=== PATIENT | female | born 1990 | race Caucasian/White ===

== ENCOUNTER → 2016-08-10 | Outpatient (CLI) | payer OTHER ==
[2016-08-10 12:17] LABS: CHOLESTEROL/HDL RATIO 2.5; THYROID STIMULATING HORMONE 3.2 uIu/ml (0.300-4.500)
== END | disposition home or self-care (01) ==
LOC: C.LABPBG 09:39
PROVIDERS: ATTEND Physician Assistant
DX: Z00.00 Encounter for general adult medical examination without abnormal findings (principal); E03.8 Other specified hypothyroidism

== ENCOUNTER → 2016-08-16 | Outpatient (CLI) | payer OTHER ==
[2016-08-16 11:45] LABS: CALCIUM 9.3 mg/dl (8.5-10.1)
[2016-08-16 11:46] LABS: BLOOD UREA NITROGEN 11 mg/dl (7-18); CARBON DIOXIDE 26 mmol/L (21-32); CHLORIDE 108 mmol/L (98-107); CREATININE 0.76 mg/dl (0.60-1.20); GLUCOSE 80 mg/dl (70-99); POTASSIUM 4.1 mmol/L (3.5-5.1); SODIUM 140 mmol/L (136-145)
== END | disposition home or self-care (01) ==
LOC: C.LABPBG 07:45
PROVIDERS: ATTEND Physician Assistant
DX: Z00.00 Encounter for general adult medical examination without abnormal findings (principal)

== ENCOUNTER 2021-03-27 14:11 | Inpatient (IN) ==
[2021-03-27] MEDS ORDERED: OXYTOCIN 30 UNITS/500 ML BAG IV PRN (15:28)
--- NOTE | 2021-03-27 15:30 | History & Physical Report ---
Date of Service March 27, 2021 Assessment & Plan (1) SROM (spontaneous rupture of membranes): Plan: 30yo at 39 weeks GA presents for SROM. - SROM a few hours ago - Epidural pending - Labor: pit - Vitals: elevated BP, mildly tachycardic on arrival; otherwise WNL History of Present Illness Chief Complaint: SROM Primary Care Provider: Regulo Shaw MD 30yo at 39 weeks GA presents for SROM. Leakage of fluid: water broke a few hours ago Contractions: regular for the past few hours Vaginal Bleeding: mild since spontaneous rupture of membranes Movement: good Uncomplicated course thus far. GBS negative. Allergies Allergy/AdvReac Type Severity Reaction Status Date / Time No Known Allergies Allergy Verified 03/27/21 15:05 Home Medications Medication Instructions Recorded Confirmed Type biotin 10 mg tablet 10 mg PO DAILY tab 01/26/19 03/27/21 History cholecalciferol (vitamin D3) 25 1,000 units PO DAILY cap 01/26/19 03/27/21 History mcg (1,000 unit) capsule levothyroxine 50 mcg tablet 50 mcg PO Q OTHER DAY #90 tab 06/22/20 03/27/21 Rx levothyroxine 75 mcg tablet 75 mcg PO Q OTHER DAY #45 tab 08/22/20 03/27/21 Rx breast pump #1 ea 12/13/20 03/21/21 Rx prenat.vits,lois,ggo-ksro-overk 1 tab PO DAILY 03/27/21 03/27/21 History Patient History Medical History Bicuspid aortic valve Secondary hypothyroidism Surgical History H/O wisdom tooth extraction Hx of tonsillectomy Family History Mother Multiple sclerosis Brother Bicuspid aortic valve Sister Bicuspid aortic valve Denies family history of Ovarian cancer Prostate cancer Breast cancer Lung cancer Colorectal cancer Uterine cancer Social History (Updated 08/11/20 @ 13:47 by Vicki Bautista RN) Smoking Status: Never smoker Second Hand Exposure: No; Hx Alcohol Use: No Hx Substance Use: No Preferred Language: Vietnamese Communication Ability: Effective Visual Impairment: Limited Hearing Ability: Normal Forest Officer Required: No Beliefs That Will Affect Care: None marital status: marital status details: Vinayak Taveras (30) [phone] Current Living Situation: Spouse Current Living Situation Comment: Vinayak current occupational status: employed 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 Denies dyspnea, cough. Denies chest pain. Denies breast pain or discharge. Denies dysuria. Denies headache. Denies back pain. Physical Exam Physical Exam: General: Alert, oriented, no acute distress Cardiac: Regular rhythm, mildly tachycardic, normal S1, S2. No murmurs appreciated. Respiratory: Clear to auscultation b/l with good air flow entry, symmetric chest rise and fall. No wheezes or crackles. No increased work of breathing or accessory muscle use Abdomen: Gravid, soft, nontender. No guarding or CVA tenderness Spontaneous rupture of membranes. Results & Data ([facility]) Vital Signs (Past 12 Hours) Vital Signs Temp Pulse Resp BP 03/27/21 14:18 36.7 C 20 03/27/21 14:17 109 H 146/81 H Supervising Physician Co-Signing Physician Notes Resident Physician Supervision Note: I interviewed and examined the patient. Discussed with Dr. Vega and agree with findings and plan as documented in the note. Any exceptions or clarifications are listed here: 30 y/o at 39 wga presenting w/ SROM. complicated by ?maternal bicuspid aortic valve but pt's brother w/ coarct - s/p normal echo, hypothyroid, and echogenic focus in the stomach s/p MFM. On exam, initial bp elevated but pt very uncomfortable and normal repeat. SSE + nitrazine, pooling, ferning. SVE 3/-2, cephalic by sutures and US. Fetus cat 1. Will manage expectantly, pt desires epidural. Documented By: Serenity Leigh MD Resident Activity Tracking Resident Involvement: Resident Care Provided Care Provided: OB Delivery
[2021-03-27] MEDS: LACTATED RINGER'S 1,000 ML IV PRN ×2 (16:01→17:01)
[2021-03-27 16:15] LABS: Hemoglobin 13.5 g/dL (12.0-16.0); Mean Corpuscular Hemoglobin 29.6 pg (25-34); Mean Corpuscular Hgb Conc 33.8 g/dL (32-36); Mean Corpuscular Volume 87.7 fL (80-100); Platelet Count 240 K/uL (130-400); RDW Coefficient of Variation 13.9 % (11.5-14.5); RDW Standard Deviation 44.7 fL (36.4-46.3); Red Blood Count 4.56 M/uL (4.2-5.4); White Blood Count 15.18 K/uL (4.8-10.8)
[2021-03-27] MEDS ORDERED: ePHEDrine sulfate 50 MG/ML AMP ONE (16:16)
[2021-03-27] MEDS ORDERED: BUPIVACAINE 0.25% 30 ML VIAL ONE ×2 (16:17→20:59)
[2021-03-27] MEDS ORDERED: fentaNYL 2MCG/ML ROPIVACAINE 1.25MG/ML 100 ML BAG EPI ONE (16:17)
[2021-03-27] MEDS ORDERED: SODIUM CHLORIDE 0.9% INJ 10 ML VIAL ONE ×2 (16:17→21:09)
[2021-03-27] MEDS ORDERED: fentaNYL citrate 100 MCG/2 ML VIAL ONE ×2 (16:17→20:59)
--- NOTE | 2021-03-27 16:35 | Anesthesiology Consultation ---
Date of Service March 27, 2021 Assessment & Plan (1) Encounter for pre-operative examination: Chart Review Chart Review: Acceptable Risk for Labor Epidural History Height/Weight Height: 5 ft 2 in Weight: 95.254 kg Allergies Allergy/AdvReac Type Severity Reaction Status Date / Time No Known Allergies Allergy Verified 03/27/21 15:05 Medications Home Medications Medication Instructions Recorded Confirmed Last Taken biotin 10 mg tablet 10 mg PO DAILY tab 01/26/19 03/27/21 1 Day Ago ~03/26/21 cholecalciferol (vitamin D3) 25 1,000 units PO DAILY cap 01/26/19 03/27/21 1 Day Ago mcg (1,000 unit) capsule ~03/26/21 levothyroxine 50 mcg tablet 50 mcg PO Q OTHER DAY #90 tab 06/22/20 03/27/21 03/27/21 50 mcg levothyroxine 75 mcg tablet 75 mcg PO Q OTHER DAY #45 tab 08/22/20 03/27/21 1 Day Ago ~03/26/21 75 mcg breast pump #1 ea 12/13/20 03/21/21 Unknown prenat.vits,lois,akc-jkkc-tstxi 1 tab PO DAILY 03/27/21 03/27/21 03/26/21 20:00 Active Medications Generic Name Dose Route Start Last Admin Trade Name Freq PRN Reason Stop Dose Admin Lactated Ringer's 1,000 mls @ 125 mls/hr 03/27/21 15:28 03/27/21 16:01 Lr IV 03/29/21 15:27 999 mls/hr .Q8H PRN Administration L&D Protocol Protocol Past Medical History Medical History Bicuspid aortic valve Secondary hypothyroidism Past Family History Family History Mother Multiple sclerosis Brother Bicuspid aortic valve Sister Bicuspid aortic valve Denies family history of Ovarian cancer Prostate cancer Breast cancer Lung cancer Colorectal cancer Uterine cancer Past Surgical History Surgical History H/O wisdom tooth extraction Hx of tonsillectomy Social History Smoking Status: Never smoker Hx Alcohol Use: No Hx Substance Use: No Physical Exam Vital Signs Last Vital Signs Temp 36.7 C 03/27/21 14:18 Pulse 109 H 03/27/21 16:33 Resp 20 03/27/21 14:18 BP 132/89 03/27/21 16:33 Testing Laboratory Results 03/27/21 15:56
[2021-03-27] MEDS ORDERED: NALOXONE HCL 1 MG in SODIUM CHLORIDE 0.9% 1000ML 1,000 ML IV PRN (16:57)
[2021-03-27] MEDS ORDERED: NALOXONE HCL 0.4 MG/1 ML VIAL/CARP IV PRN (16:57)
[2021-03-27] MEDS ORDERED: fentaNYL 2MCG/ML ROPIVACAINE 1.25MG/ML 100 ML BAG EPI PRN (16:57)
[2021-03-27] MEDS ORDERED: ePHEDrine sulfate 50 MG/ML AMP IV PRN (16:57)
[2021-03-27] MEDS: ONDANSETRON INJ 2 MG/ML 2 ML VIAL IV PRN ×2 (17:34→23:19)
[2021-03-27] MEDS ORDERED: CALCIUM CARBONATE 500 MG CHEWABLE TAB PO STA (18:14)
[2021-03-27] MEDS ORDERED: NURSING L&D Epidural Breakthrough Pain Update ONE (19:25)
[2021-03-27] MEDS ORDERED: CALCIUM CARBONATE 500 MG CHEWABLE TAB PO PRN (20:36)
[2021-03-27] MEDS ORDERED: CALCIUM CARBONATE 500 MG CHEWABLE TAB ONE (20:39)
[2021-03-28] MEDS: LACTATED RINGER'S 1,000 ML IV PRN (01:06)
--- NOTE | 2021-03-28 02:13 | Delivery Summary ---
Vaginal Delivery Summary Date of Service March 28, 2021 Vaginal Delivery Summary and 2nd Degree LAC PREOPERATIVE DIAGNOSIS: 1. Single intrauterine at 39 1/7 wga 2. Spontaneous rupture of membranes 3. Labor 4. Hypothyroid 5. Questionable maternal bicuspid aortic valve 6. echogenic focus in stomach POSTOPERATIVE DIAGNOSIS: 1. Single intrauterine at 39 1/7 wga 2. Spontaneous rupture of membranes 3. Labor 4. Hypothyroid 5. Questionable maternal bicuspid aortic valve 6. echogenic focus in stomach 7. Delivered PROCEDURE: 1. Normal spontaneous vaginal delivery. SURGEON: Serenity Leigh MD ANESTHESIA: Epidural. ESTIMATED BLOOD LOSS: 500 mL FLUIDS: Continuous LR. URINE OUTPUT: None. COMPLICATIONS: None. CONDITION: Stable. INDICATIONS: 30 y/o at 39 1/7 wga presented one day ago with SROM. She was 3cm on arrival. She received an epidural for pain control and continued to progress on her own to complete and desired to push. FINDINGS: A viable female infant, weight pending with Apgars of 8 and 9 at 1 and 5 minutes respectively. SPECIMEN: Cord blood OPERATIVE REPORT: The patient progressed to 10 cm, 100% effaced and +2 station, pushed over intact perineum with anesthesia to deliver a viable female infant, weight and Apgars as above. Head of delivered in CLARA position. Loose nuchal cord was reduced. Body and shoulders were delivered without difficulty. was delivered to maternal abdomen and nursing staff. Delayed cord clamping was performed for 60 seconds. Cord was clamped and cut. Cord blood was obtained. Placenta delivered spontaneously intact with 3-vessel cord. IV oxytocin and fundal massage were given however uterine atony was noted and methergine and 1000mcg of cytotec were administered for excellent hemostasis. Vagina, cervix, perineum, and placenta were inspected. A second degree laceration was noted and repaired using 3-0 vicryl. Sponge and needle counts correct x2. No sponges were left behind. Mother and stable in immediate period. [facility] [place] Vaginal Delivery Charge Vaginal Delivery Codes: 52181 global code for the antepartum, delivery, and post- Delivery Type Details: and 2nd Degree LAC
[2021-03-28] MEDS ORDERED: METHYLERGONOVINE MALEATE 0.2 MG/ML AMP IM ONE (02:17)
[2021-03-28] MEDS ORDERED: ACETAMINOPHEN 325 MG TAB PO PRN (02:17)
[2021-03-28] MEDS ORDERED: BENZOCAINE 20% AER SPR 82.5 GM CAN EXT PRN (02:17)
[2021-03-28] MEDS ORDERED: OXYTOCIN 30 UNITS/500 ML BAG IV PRN (02:17)
[2021-03-28] MEDS ORDERED: miSOPROStoL 200 MCG TAB PR ONE (02:17)
[2021-03-28] MEDS ORDERED: DIPHTHERIA/TETANUS/PERTUSSIS 0.5 ML SYR/VIAL IM ONE (02:17)
[2021-03-28] MEDS ORDERED: HYDROCORTISONE ACETATE 25 MG SUPP PR PRN (02:17)
[2021-03-28] MEDS ORDERED: SUPERCREAM 0.870% 15 GM JAR EXT PRN (02:17)
[2021-03-28] MEDS ORDERED: AMMONIA, AROMATIC INHAL 1 EA AMP INH ONE (04:57)
[2021-03-28] MEDS ORDERED: LEVOTHYROXINE SODIUM 75 MCG TABLET PO SCH (06:30)
[2021-03-28] MEDS: FERROUS SULFATE 325 MG TAB PO SCH (07:57)
[2021-03-28] MEDS: PRENATAL VITAMIN 1 TAB PO SCH (07:57)
[2021-03-28] MEDS: DOCUSATE SODIUM 100 MG CAP PO SCH ×2 (07:57→20:50)
--- NOTE | 2021-03-28 08:54 | Anesthesia Procedure Note ---
Date of Service March 28, 2021 Anesthesia Post Epidural Note Vital Signs Vital Signs: Temp Pulse Resp BP Pulse Ox 98.6 F 110 H 18 117/79 95 03/28/21 05:20 03/28/21 05:20 03/28/21 05:20 03/28/21 05:20 03/28/21 05:20 Pain Intensity Bilateral Abdomen: Pain Intensity: 0 Notes Mental Status: alert / awake / arousable and participated in evaluation Nausea / Vomiting: adequately controlled Pain: adequately controlled Airway Patency, RR, SpO2: stable & adequate BP & HR: stable & adequate Hydration State: stable & adequate Neuraxial Anesthesia: was administered and sensory block is resolving Anesthetic Complications: no major complications apparent and Pt Satisfied with anesthetic care Epidural: Removed without complications and With tip intact
[2021-03-28] MEDS: IBUPROFEN 600 MG TAB PO PRN ×3 (10:49→20:50)
[2021-03-29] MEDS: IBUPROFEN 600 MG TAB PO PRN ×2 (02:22→08:11)
[2021-03-29] MEDS ORDERED: LEVOTHYROXINE SODIUM 50 MCG TABLET PO SCH (06:30)
[2021-03-29 06:48] LABS: Hematocrit (blood only) 26.5 % (37-47); Hemoglobin 8.8 g/dL (12.0-16.0); Mean Corpuscular Hemoglobin 29.7 pg (25-34); Mean Corpuscular Hgb Conc 33.2 g/dL (32-36); Mean Corpuscular Volume 89.5 fL (80-100); Mean Platelet Volume 8.1 fL (7.4-10.4); Platelet Count 174 K/uL (130-400); RDW Coefficient of Variation 14.4 % (11.5-14.5); RDW Standard Deviation 47.2 fL (36.4-46.3); Red Blood Count 2.96 M/uL (4.2-5.4); White Blood Count 14.49 K/uL (4.8-10.8)
--- NOTE | 2021-03-29 06:48 | Obstetrical Progress Note ---
Date of Service March 29, 2021 Assessment & Plan (1) Encounter for care and examination after delivery: Plan: 30yo PPD 1 s/p at 39 weeks 1 day complicated by 2nd degree laceration -Continue routine care -Vitals reviewed- afebrile -GBS neg -Encourage ambulation, regular diet -Pain control with ibuprofen, acetaminophen PRN -Encourage -Hgb 8.8, supplement iron -discharge likely today -F/u in 6 weeks with OB after discharge Admission and Anticipated Discharge Date Admission Date: March 27, 2021 Supervising Physician Co-Signing Physician Notes Resident Physician Supervision Note: I interviewed and examined the patient. Discussed with Dr. Vega and agree with findings and plan as documented in the note. Any exceptions or clarifications are listed here: Doing well. hgb 8.8 but tolerating well. Wants d/c. Instructions given. Documented By: Vanesa Clay MD, FACOG Subjective Ambulation: yes Voiding: yes Passing Gas: not yet BM: not yet Diet Tolerance: regular Lochia: small Feeding Type: Current Pain Level(1-10): 2 Review of Systems Review of Systems: Denies fevers/chills. Denies dyspnea, cough. Denies chest pain. Mild breast pain. Denies dysuria. Denies headache. Denies back pain. +nausea. Denies vomiting. Physical Exam Physical Exam: General: Alert, oriented, no acute distress Cardiac: Regular rate and rhythm, normal S1, S2. No murmurs appreciated. Respiratory: Clear to auscultation, symmetric chest rise and fall. No wheezes or crackles. No increased work of breathing or accessory muscle use Abdomen: Soft, nontender, nondistended. Fundus firm and palpable at 1 cm below u mbilicus. No guarding or rebound. Extremities: Warm, dry. No lower extremity edema, erythema or swelling. Results & Data ([facility]) Vital Signs (Past 12 Hours) Vital Signs Temp Pulse Resp BP Pulse Ox 03/28/21 23:30 36.9 C 95 H 17 99/66 L 98 03/28/21 20:50 36.8 C 105 H 16 108/74 98 Resident Activity Tracking Resident Involvement: Resident Care Provided Care Provided: OB Delivery
[2021-03-29] MEDS: PRENATAL VITAMIN 1 TAB PO SCH (08:11)
[2021-03-29] MEDS: FERROUS SULFATE 325 MG TAB PO SCH (08:11)
[2021-03-29] MEDS: DOCUSATE SODIUM 100 MG CAP PO SCH (08:11)
[2021-03-29 09:26] VITALS: BP 109/75; PULSE 91; TEMP 98.2; O2SAT 95
[2021-03-29] MEDS ORDERED: bisacodyL 5 MG TABEC PO SCH (20:00)
[2021-03-30] MEDS ORDERED: bisacodyL 10 MG SUPP PR PRN (02:17)
== END 2021-03-29 12:45 | disposition home or self-care (01) | DRG 806 ==
LOC: OPB 14:11 → 4S1 14:13 → 4S2 03-28 05:28

== ENCOUNTER 2022-09-01 07:42 | Inpatient (IN) ==
[2022-09-01] MEDS: LACTATED RINGER'S 1,000 ML IV PRN ×2 (08:00→09:06)
[2022-09-01] MEDS ORDERED: LIDOCAINE 1% LOCAL 20 ML VIAL INFIL PRN (08:10)
[2022-09-01] MEDS ORDERED: OXYTOCIN 30 UNITS/500 ML BAG IV PRN ×2 (08:10→14:31)
[2022-09-01] MEDS ORDERED: SODIUM CHLORIDE 0.9% PF INJ 10 ML VIAL ONE (08:11)
[2022-09-01] MEDS ORDERED: BUPIVACAINE 0.25% PF 30 ML VIAL ONE (08:11)
[2022-09-01] MEDS ORDERED: fentaNYL citrate PF 100 MCG/2 ML VIAL ONE (08:11)
[2022-09-01] MEDS ORDERED: fentaNYL 2MCG/ML ROPIVACAINE 1.25MG/ML 100 ML BAG EPI ONE (08:12)
[2022-09-01] MEDS ORDERED: LIDOCAINE 2%/EPINEPHRINE 1:200,000 20 ML PF ONE (08:12)
[2022-09-01] MEDS ORDERED: ePHEDrine sulfate 50 MG/ML AMP ONE (08:14)
--- NOTE | 2022-09-01 08:19 | History & Physical Report ---
Date of Service September 01, 2022 Assessment & Plan (1) SROM (spontaneous rupture of membranes): (2) Normal labor: Plan 32 yo at 39 wga presents w/ SROM in labor VSS Fetus cat 1 Labor - manage expectantly GBS neg desires epidural History of Present Illness Chief Complaint: ctx, lof Primary Care Provider: Regulo Shaw MD 32 yo at 39 wga presents w/ c/o ctx and LOF. has been cramping on and off all night and then they got worse early this am to q4-5min. She then had gush of fluid around 6am and still leaking since. +FM PNI: Bicuspid aortic valve Hypothyroid Past FUDGER Hx: G1 2005 SAB G2 2020 G3 current denies hx STIs 08/2020 neg cyto Allergies Allergy/AdvReac Type Severity Reaction Status Date / Time No Known Allergies Allergy Verified 08/31/22 07:36 Home Medications Medication Instructions Recorded Confirmed Type biotin 10 mg tablet 10 mg PO DAILY 01/26/19 09/01/22 History cholecalciferol (vitamin D3) 25 1,000 units PO DAILY 01/26/19 09/01/22 History mcg (1,000 unit) capsule prenat.vits,lois,gzf-cfgf-hlorx 1 tab PO DAILY 03/27/21 09/01/22 History levothyroxine 75 mcg tablet 75 mcg PO Q OTHER DAY #45 tabs 08/29/21 09/01/22 Rx levothyroxine 50 mcg tablet 50 mcg PO Q OTHER DAY #90 tabs 08/08/22 09/01/22 Rx Patient History Medical History (Updated 09/01/22 @ 08:19 by Serenity Leigh MD) Bicuspid aortic valve Brother has a history of this. Encounter for pre-operative examination History of chicken pox Secondary hypothyroidism Synthroid 75mcg and alternating 50mcg every other day. SROM (spontaneous rupture of membranes) Surgical History H/O wisdom tooth extraction Hx of tonsillectomy Family History Mother Multiple sclerosis Brother Bicuspid aortic valve Sister Bicuspid aortic valve Denies family history of Ovarian cancer Prostate cancer Myocardial infarction Breast cancer Lung cancer Colorectal cancer Uterine cancer Social History Smoking Status: Never smoker Second Hand Exposure: No; Do You Dip or Chew Tobacco: No; Hx Alcohol Use: Yes Alcohol type: beer, wine and hard liquor Alcohol Intake Frequency: Monthly or Less Alcohol Intake Frequency Comment: social Hx Substance Use: No Preferred Language: Polish Communication Ability: Effective Visual Impairment: Limited Hearing Ability: Normal Systems Manager Required: No Beliefs That Will Affect Care: None marital status: marital status details: Vinayak Taveras [phone] Current Living Situation: Spouse and Family Current Living Situation Comment: lives with spouse, daughter, dog current occupational status: employed 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 How many Children do You have: 1 Feels Safe at Home: Yes Childhood Exposure to Second-Hand Smoke: No caffeine: Yes Dental Care, Regularly: Yes Physical Activity Frequency: 3-4 Times per Week Seatbelt Use: always Sunscreen Use: Yes Assistive Devices: None Physical Exam Genitourinary: Manual OB Exam: + cervical dilation (3-4), + cervical effacement 70%, + station -2 and + amniotic fluid (+nitrazine, pooling, ferning) OB Exam Monitor Tracing: + external FHT monitor used, + external uterine katiuska tor used (q3) and + category I (150/mod/+accel/-decel) Results & Data Vital Signs (Past 12 Hours) Vital Signs Pulse BP 09/01/22 07:49 112 H 128/93 Laboratory Results OB Labs: Blood Type O Positive 02/06/22 Antibody Screen NEGATIVE 02/06/22 Hemoglobin 11.9 g/dl (12.0-16.0) L 06/20/22 Hematocrit 36.5 % (37.0-47.0) L 06/20/22 Mean Corpuscular Volume 86.6 fL (80.0-100.0) 02/06/22 Platelet Count 269 K/uL (130-400) 02/06/22 Rubella IgG Antibody Immune (Immune) 02/06/22 Rapid Plasma Reagin Nonreactive (Nonreactive) 02/06/22 Hepatitis B Surface Antigen Neg (Neg) 08/24/20 Hepatitis B Surface Antigen. NON-REACTIVE (NON-REACTIVE) 02/06/22 Hepatitis C Antibody (EIA) NON-REACTIVE (NON-REACTIVE) 02/06/22 HIV (1&2) Ab and P24 Ag, 4th Gener Neg (Neg) 08/24/20 HIV (1&2) Ag and Ab Confirmation NON-REACTIVE (NON-REACTIVE)B 02/06/22 Glucose 1 Hour 50 gm Load 103 mg/dl (70-130) 06/20/22 Maternal Serum Alpha Fetoprotein 34.4 ng/mL 03/28/22 OB Optional Labs: Chlamydia trachomatis RNA Not Detected (NotDetected) 02/06/22 Neisseria gonorrhoeae RNA Not Detected (NotDetected) 02/06/22 Thyroid Stimulating Hormone (TSH)D 1.828 uIu/ml (0.300-4.500) 08/13/22 Alpha Fetoprotein Triple Screen SEE NOTE 03/28/22 Labs Reviewed: cf/sma neg 2020--akh cfdna-low risk--mln gbs neg Diagnostic Findings post plac Coding Level of Care Code None Diagnoses SROM (spontaneous rupture of membranes) Normal labor O80; Z37.9
[2022-09-01 08:41] LABS: Hematocrit (blood only) 37.3 % (37.0-47.0); Hemoglobin 12.5 g/dl (12.0-16.0); Mean Corpuscular Hemoglobin 28.8 pg (25.0-34.0); Mean Corpuscular Hgb Conc 33.5 g/dL (32.0-36.0); Mean Corpuscular Volume 85.9 fL (80.0-100.0); Mean Platelet Volume 8.2 fL (9.4-12.4); Platelet Count 195 K/uL (130-400); RDW Coefficient of Variation 14.4 % (11.5-14.5); RDW Standard Deviation 44.8 fL (36.4-46.3); Red Blood Count 4.34 M/uL (4.20-5.40); White Blood Count 9.73 K/ul (4.8-10.8)
--- NOTE | 2022-09-01 08:56 | Anesthesiology Consultation ---
Date of Service September 01, 2022 Assessment & Plan Chart Review Chart Review: Acceptable Risk for Surgery, Patient NOT seen in Pre Admission Testing and Acceptable Risk for Labor Epidural Consults Requested none ASA ASA2 Proposed Anesthesia Anesthesia Type: Labor Epidural and CSE History Height/Weight Height: 5 ft 2 in Weight: 94.801 kg Allergies Allergy/AdvReac Type Severity Reaction Status Date / Time No Known Allergies Allergy Verified 08/31/22 07:36 Medications Home Medications Medication Instructions Recorded Confirmed Last Taken biotin 10 mg tablet 10 mg PO DAILY 01/26/19 09/01/22 08/31/22 22:00 cholecalciferol (vitamin D3) 25 1,000 units PO DAILY 01/26/19 09/01/22 08/31/22 22:00 mcg (1,000 unit) capsule prenat.vits,lois,taa-fwas-unqst 1 tab PO DAILY 03/27/21 09/01/22 08/31/22 22:00 levothyroxine 75 mcg tablet 75 mcg PO Q OTHER DAY #45 tabs 08/29/21 09/01/22 09/01/22 07:00 levothyroxine 50 mcg tablet 50 mcg PO Q OTHER DAY #90 tabs 08/08/22 09/01/22 08/31/22 07:00 Past Medical History Medical History Bicuspid aortic valve Brother has a history of this. Encounter for pre-operative examination History of chicken pox Secondary hypothyroidism Synthroid 75mcg and alternating 50mcg every other day. SROM (spontaneous rupture of membranes) Exercise / Class Metabolic Activity II 4-5 Yardwork/Stairs/Walk up hill Past Family History Family History Mother Multiple sclerosis Brother Bicuspid aortic valve Sister Bicuspid aortic valve Denies family history of Ovarian cancer Prostate cancer Myocardial infarction Breast cancer Lung cancer Colorectal cancer Uterine cancer Past Surgical History Surgical History H/O wisdom tooth extraction Hx of tonsillectomy Past Anesthesia History No Hx of Anesthesia Complications and No Family Hx of Anesthesia Complications History of PONV No Hx of PONV and No Hx of Motion Sickness Social History Smoking Status: Never smoker Do You Dip or Chew Tobacco: No Hx Alcohol Use: Yes Alcohol type: beer, wine and hard liquor Hx Substance Use: No Physical Exam Vital Signs Last Vital Signs Pulse 99 H 09/01/22 08:42 Resp 20 09/01/22 08:14 BP 128/93 09/01/22 07:49 Pulse Ox 99 09/01/22 08:42 Testing Laboratory Results 09/01/22 08:15 Echocardiogram Date: 01/19/22 EF: 60% LV Function: normal RWMA: + none Valvular Disease: + pertinent finding (? bicuspid AV)
[2022-09-01] MEDS ORDERED: LIDOCAINE 2%/EPINEPHRINE 1:200,000 20 ML PF EPI STA (09:29)
[2022-09-01] MEDS ORDERED: BUPIVACAINE 0.25% PF 30 ML VIAL EPI PRN (09:29)
[2022-09-01] MEDS ORDERED: NALOXONE HCL 0.4 MG/1 ML VIAL/CARP IV PRN (09:29)
[2022-09-01] MEDS ORDERED: fentaNYL 2MCG/ML ROPIVACAINE 1.25MG/ML 100 ML BAG EPI PRN (09:29)
[2022-09-01] MEDS ORDERED: ONDANSETRON INJ 2 MG/ML 2 ML VIAL IV PRN (09:29)
[2022-09-01] MEDS ORDERED: NALBUPHINE HCL INJ 10 MG/ML AMP IV PRN (09:29)
[2022-09-01] MEDS ORDERED: ePHEDrine sulfate 50 MG/ML AMP IV PRN (09:29)
[2022-09-01] MEDS ORDERED: LIDOCAINE 2% MPF LOCAL 5 ML VIAL EPI PRN (09:29)
[2022-09-01] MEDS ORDERED: diphenhydrAMINE 50 MG/ML VIAL IV PRN (09:29)
[2022-09-01] MEDS ORDERED: fentaNYL citrate PF 100 MCG/2 ML VIAL EPI PRN (09:29)
[2022-09-01] MEDS ORDERED: ROPIVACAINE 0.5% PF 5 MG/ML 20 ML VIAL EPI PRN (09:29)
[2022-09-01] MEDS ORDERED: NALOXONE HCL 1 MG in SODIUM CHLORIDE 0.9% 1000ML 1,000 ML IV PRN (09:29)
[2022-09-01] MEDS ORDERED: SODIUM CHLORIDE 0.9% PF INJ 10 ML VIAL EPI PRN (09:29)
[2022-09-01] MEDS ORDERED: fentaNYL citrate PF 100 MCG/2 ML VIAL EPI STA (09:29)
[2022-09-01] MEDS ORDERED: PROMETHAZINE HCL 25 MG in SODIUM CHLORIDE 0.9% 50 ML IV PRN (09:29)
[2022-09-01] MEDS ORDERED: SODIUM CHLORIDE 0.9% PF INJ 10 ML VIAL EPI STA (09:29)
[2022-09-01] MEDS ORDERED: BUPIVACAINE 0.25% PF 30 ML VIAL EPI STA (09:29)
[2022-09-01] MEDS ORDERED: NURSING L&D Epidural Breakthrough Pain Update ONE (09:40)
--- NOTE | 2022-09-01 12:10 | Labor Progress Brief Note ---
Date of Service September 01, 2022 Subjective comfortable Assessment & Plan (1) Normal labor: Plan labor down. fetus category one/two. probably start active pushing in one hour. Admission and Anticipated Discharge Date Admission Date: September 01, 2022 Physical Exam Physical Exam: cx--ant lip, 100/0 toco--qq2-3min efm--140s with mod variability, accels present, early/variable with some contractions. Results & Data Vital Signs (Past 12 Hours) Vital Signs Pulse Resp BP Pulse Ox 09/01/22 12:04 87 98 09/01/22 12:05 93 H 92 09/01/22 11:59 65 96 09/01/22 11:54 72 98 09/01/22 11:53 74 98/54 L 09/01/22 11:49 72 97 09/01/22 11:44 78 98 09/01/22 11:39 88 98 09/01/22 11:38 98 H 113/70 09/01/22 11:34 74 96 09/01/22 11:29 73 96 09/01/22 11:24 78 95 09/01/22 11:23 76 112/69 09/01/22 11:22 74 94 09/01/22 11:19 73 96 09/01/22 11:14 73 95 09/01/22 11:09 83 97 09/01/22 11:08 80 110/72 09/01/22 11:04 80 95 09/01/22 10:59 80 95 09/01/22 10:58 78 93 09/01/22 10:54 79 96 09/01/22 10:53 88 111/64 09/01/22 10:49 78 96 09/01/22 10:44 74 95 09/01/22 10:39 77 96 09/01/22 10:38 78 115/72 09/01/22 10:34 77 96 09/01/22 10:30 20 09/01/22 10:30 20 09/01/22 10:29 80 97 09/01/22 10:24 90 95 09/01/22 10:23 88 92 09/01/22 10:19 92 H 97 09/01/22 10:14 99 H 95 09/01/22 10:09 88 97 09/01/22 10:03 82 98 09/01/22 09:58 85 97 09/01/22 09:53 97 09/01/22 09:53 92 H 09/01/22 09:52 84 92 09/01/22 09:53 90 127/81 09/01/22 09:48 90 98 09/01/22 09:47 92 H 94 09/01/22 09:43 89 99 09/01/22 09:38 96 H 96 09/01/22 09:35 96 H 92 09/01/22 09:36 81 104/53 L 09/01/22 09:33 91 H 96 09/01/22 09:30 102 H 105/56 L 09/01/22 09:28 98 09/01/22 09:28 98 H 09/01/22 09:28 100 H 103/56 L 09/01/22 09:26 100 H 119/56 L 09/01/22 09:25 101 H 88 L 09/01/22 09:23 85 96 09/01/22 09:22 93 H 136/67 09/01/22 09:20 96 H 135/107 H 09/01/22 09:18 91 H 131/82 99 09/01/22 09:13 110 H 97 09/01/22 09:08 100 H 97 09/01/22 09:06 95 H 94 09/01/22 09:07 92 H 113/73 09/01/22 09:03 103 H 95 09/01/22 08:58 110 H 98 09/01/22 08:42 99 H 99 09/01/22 08:37 94 H 86 L 09/01/22 07:49 112 H 128/93 09/01/22 08:14 20 Coding Level of Care Code None Diagnoses Normal labor O80; Z37.9
[2022-09-01] MEDS ORDERED: CALCIUM CARBONATE 500 MG CHEWABLE TAB PO PRN (14:01)
[2022-09-01] MEDS ORDERED: miSOPROStoL 200 MCG TAB ONE (14:27)
[2022-09-01] MEDS ORDERED: BENZOCAINE 20% AER SPR 82.5 GM CAN EXT PRN (14:31)
[2022-09-01] MEDS ORDERED: DIPHTHERIA/TETANUS/PERTUSSIS Vaccine (Tdap, Age 7+yrs) 0.5mL SYR/VL IM ONE (14:31)
[2022-09-01] MEDS ORDERED: bisacodyL 10 MG SUPP PR PRN (14:31)
[2022-09-01] MEDS ORDERED: ACETAMINOPHEN 325 MG TAB PO PRN (14:31)
[2022-09-01] MEDS ORDERED: oxyCODONE/ACETAMINOPHEN 5mg/325mg TAB PO PRN (14:31)
[2022-09-01] MEDS ORDERED: miSOPROStoL 200 MCG TAB PR ONE (14:31)
[2022-09-01] MEDS ORDERED: HYDROCORTISONE ACETATE 25 MG SUPP PR PRN (14:31)
--- NOTE | 2022-09-01 14:36 | Delivery Summary ---
Vaginal Delivery Summary Date of Service September 01, 2022 Vaginal Delivery Summary and 2nd Degree LAC Pre-operative Diagnosis: at 39 weeks srom and active labor Post-operative Diagnosis: same Procedure: epidural second degree lac and repair EBL: 400cc Anesthesia: epidural Procedure: The patient presented to labor and delivery with srom and labor. She got an epidural and progressed spontaneously. After laboring doen, The patient pushed for 10 minutes to deliver a viable male in jen position. A nuchal cord x 1 was reduced. The nose and mouth were bulb suctioned on the perineum and the rest of the was then delivered without difficulty. The baby was vigorous. The nose and mouth were again bulb suctioned and the infant was placed in the maternal abdomen for drying and attention. Cord was clamped and cut at one minute of life. Cord blood and segment obtained. Placenta delivered spontaneous, intact with a three vessel cord. Cervix/sulci/rectum were intact. A second degree perineal laceration was repaired in the normal standard fashion. Hemostasis obtained with dilute pitocin and fundal massage, and cytotec 600mcg. Apgars were 8/9. Mother and baby doing well at the end of the delivery. [facility] Vaginal Delivery Charge Delivery Type Details: and 2nd Degree LAC
--- NOTE | 2022-09-01 15:01 | Anesthesia Procedure Note ---
Date of Service September 01, 2022 Anesthesia Post Epidural Note Vital Signs Vital Signs: Pulse Resp BP Pulse Ox 96 H 20 115/64 99 09/01/22 14:39 09/01/22 10:30 09/01/22 14:39 09/01/22 14:14 Pain Intensity Bilateral Abdomen: Pain Intensity: 0 Notes Mental Status: alert / awake / arousable Nausea / Vomiting: adequately controlled Pain: adequately controlled Airway Patency, RR, SpO2: stable & adequate BP & HR: stable & adequate Hydration State: stable & adequate Neuraxial Anesthesia: was administered and sensory block is resolving Anesthetic Complications: no major complications apparent Epidural: Removed without complications and With tip intact
[2022-09-01] MEDS: DOCUSATE SODIUM 100 MG CAP PO SCH (21:26)
[2022-09-01] MEDS: IBUPROFEN 600 MG TAB PO PRN (22:08)
[2022-09-02] MEDS: IBUPROFEN 600 MG TAB PO PRN (05:21)
[2022-09-02] MEDS ORDERED: Nursing to Pharmacy Communication SCH (06:00)
[2022-09-02] MEDS ORDERED: LEVOTHYROXINE SODIUM 50 MCG TABLET PO SCH (06:30)
[2022-09-02] MEDS ORDERED: LEVOTHYROXINE SODIUM 75 MCG TABLET PO SCH (06:30)
[2022-09-02 07:15] LABS: Hematocrit (blood only) 32.9 % (37.0-47.0); Hemoglobin 11.2 g/dl (12.0-16.0)
--- NOTE | 2022-09-02 07:29 | Obstetrical Progress Note ---
Date of Service September 02, 2022 Assessment & Plan (1) Encounter for assessment: Plan Doing well. Routine care. Baby having some testing today. Probable d/c tomorrow. Day #:: 1 Subjective Ambulation: ambulating normally Voiding: requires PRN straight cath Passing Gas:: Yes Diet Tolerance:: regular diet Lochia:: Small Feeding Type:: breast feeding Physical Exam Constitutional WD/WN, vitals as above Respiratory normal respiratory effort, lungs clear to auscultation Cardiovascular RRR, no murmur, no edema Gastrointestinal (Abdomen) soft, nt, obese, ff/at u Results & Data Vital Signs (Past 12 Hours) Vital Signs Temp Pulse Resp BP Pulse Ox O2 Del Method 09/02/22 04:30 36.6 C 90 18 119/78 97 Room Air 09/01/22 23:30 36.6 C 87 18 104/70 96 Room Air 09/01/22 23:30 Room Air
[2022-09-02] MEDS ORDERED: PRENATAL VITAMIN 1 TAB PO SCH (08:00)
[2022-09-02] MEDS: DOCUSATE SODIUM 100 MG CAP PO SCH (08:34)
[2022-09-02] MEDS ORDERED: bisacodyL 5 MG TABEC PO SCH (20:00)
== END 2022-09-02 16:35 | disposition home or self-care (01) | DRG 807 ==
LOC: OPB 07:42 → 4S1 07:43 → 4E2 18:31